=== PATIENT | female | born 1960 | race Caucasian/White ===

== ENCOUNTER 2024-11-22 09:21 | Inpatient (IN) | payer BC, MEDICARE ==
[2024-11-22 10:18] LABS: #Basophils 0.08 10x3/uL (0.0-0.2); #Eosinophils 0.86 10x3/uL (0.0-0.5); #Monocytes 0.84 10x3/uL (0.0-1.1); #Neutrophils 5.21 10x3/uL (1.5-8.4); %Basophils 0.8 % (0.0-2.0); %Eosinophils 9.1 % (0.0-6.0); %Lymphocytes 25.7 % (18.0-47.0); %Monocytes 8.9 % (0.0-10.0); %Neutrophils 55.2 % (40.0-75.0); Hematocrit 43.4 % (34.9-44.5); Hemoglobin 13.9 g/dL (12.0-15.5); Mean Corpuscular Volume 90.4 fL (81.6-98.3); Mean Platelet Volume 10.5 fL (7.4-10.4); Platelet Count 322 10x3/uL (150-450); White Blood Cell (WBC) Count 9.5 10x3/uL (3.5-10.5)
[2024-11-22 10:30] LABS: ALT (SGPT) 27 U/L (8-55); AST (SGOT) 23 U/L (5-34); Albumin 3.8 g/dL (3.4-4.8); Alkaline Phosphatase 117 U/L (40-110); Anion Gap 16 mmol/L (10-20); BUN (Urea Nitrogen) 15 mg/dL (9.8-20.1); Bilirubin, Total 0.5 mg/dL (0.2-1.2); Calc. Creatinine Clearance 0 mL/min (70-130); Calcium 9.7 mg/dL (7.8-10.44); Carbon Dioxide 23 mmol/L (23-31); Chloride 108 mmol/L (98-107); Estimated GFR 64; Globulin 3.5 g/dL (2.4-3.5); Glucose 94 mg/dL (80-115); Potassium 4.4 mmol/L (3.5-5.1); Protein, Total 7.3 g/dL (5.8-8.1); Sodium 143 mmol/L (136-145); Troponin I Less than 0.010 ng/mL (< 0.028)
[2024-11-22] MEDS ORDERED: methylPREDNISolone Sod Succ/PF 125 MG/2 ML VIAL ONE (10:30)
[2024-11-22] MEDS ORDERED: Ipratropium/Albuterol 3 ML NEB ONE (10:34)
[2024-11-22] MEDS ORDERED: Iopamidol 370 76% 100 ML VIAL ONE (10:37)
[2024-11-22] MEDS ORDERED: Azithromycin 500 MG VIAL ONE (13:18)
[2024-11-22] MEDS ORDERED: cefTRIAXone (ROCEPHIN) 2 GM VIAL ONE (13:18)
[2024-11-22] MEDS ORDERED: Magnesium 2 GM/50 ML BAG (IN WATER) ONE (13:19)
[2024-11-22] MEDS ORDERED: Ondansetron PF 4 MG/2 ML Vial IVP PRN (13:50)
[2024-11-22 16:00] VITALS: BMI 30.5
[2024-11-22] MEDS: Ipratropium/Albuterol 3 ML NEB NEB SCH (19:25)
[2024-11-22] MEDS: methylPREDNISolone Sod Succ 40 MG VIAL IVP SCH (21:57)
[2024-11-22] MEDS: hydrOXYzine 10 MG TAB PO SCH (21:58)
[2024-11-23] MEDS: traZODone HCl 50 MG TAB PO SCH (01:09)
[2024-11-23 04:08] LABS: #Basophils 0.01 10x3/uL (0.0-0.2); #Monocytes 0.12 10x3/uL (0.0-1.1); #Neutrophils 12.95 10x3/uL (1.5-8.4); %Basophils 0.1 % (0.0-2.0); %Lymphocytes 9.8 % (18.0-47.0); %Monocytes 0.8 % (0.0-10.0); %Neutrophils 88.6 % (40.0-75.0); Hematocrit 40.9 % (34.9-44.5); Hemoglobin 12.9 g/dL (12.0-15.5); Mean Corpuscular HGB CONC 31.5 g/dL (32.0-36.0); Mean Corpuscular Hemoglobin 28.4 pg (27.0-33.0); Mean Corpuscular Volume 89.9 fL (81.6-98.3); Mean Platelet Volume 10.3 fL (7.4-10.4); Platelet Count 312 10x3/uL (150-450); Red Blood Cell (RBC) Count 4.55 10x6/uL (3.90-5.03); White Blood Cell (WBC) Count 14.6 10x3/uL (3.5-10.5)
[2024-11-23 04:17] LABS: Anion Gap 16 mmol/L (10-20); BUN (Urea Nitrogen) 17 mg/dL (9.8-20.1); Calc. Creatinine Clearance 86 mL/min (70-130); Calcium 9.4 mg/dL (7.8-10.44); Carbon Dioxide 20 mmol/L (23-31); Chloride 107 mmol/L (98-107); Estimated GFR 78; Glucose 147 mg/dL (80-115); Potassium 4.3 mmol/L (3.5-5.1); Sodium 139 mmol/L (136-145)
[2024-11-23] MEDS: Enoxaparin 40 MG (0.4 mL) SYRINGE SC SCH (08:57)
[2024-11-23] MEDS: Pantoprazole 40 MG DR.TAB PO SCH (12:17)
[2024-11-23] MEDS: Benzonatate 100 MG CAP PO PRN (12:21)
[2024-11-23] MEDS: Acetaminophen 325 MG TAB PO PRN (12:21)
[2024-11-23] MEDS: Azithromycin 500 MG in Sodium Chloride 0.9% 250 ML 250 ML IVPB SCH (14:07)
[2024-11-23] MEDS: FLU (Fluad Triv) TS24-25 (65UP)/MF59C/PF 45 MCG/0.5 ML Syringe IM ONE (14:07)
[2024-11-23] MEDS: cefTRIAXone\\ROCEPHIN 1 GM in Sodium Chloride 0.9% 100 ML IVPB SCH (15:40)
[2024-11-23] MEDS: QUEtiapine 25 MG TAB PO SCH (20:58)
[2024-11-24] MEDS: Pantoprazole 40 MG DR.TAB PO SCH (09:09)
[2024-11-24] MEDS ORDERED: guaiFENesin/Codeine 200 mg/20 mg 10 ml Cup PO PRN (13:10)
[2024-11-24] MEDS: Benzonatate 100 MG CAP PO SCH (13:25)
[2024-11-24] MEDS: guaiFENesin ER 600 MG TAB PO SCH (20:15)
[2024-11-25 08:58] LABS: #Basophils 0.02 10x3/uL (0.0-0.2); #Monocytes 0.33 10x3/uL (0.0-1.1); #Neutrophils 14.12 10x3/uL (1.5-8.4); %Basophils 0.1 % (0.0-2.0); %Lymphocytes 8.3 % (18.0-47.0); %Monocytes 2.1 % (0.0-10.0); %Neutrophils 88.6 % (40.0-75.0); Hematocrit 41.7 % (34.9-44.5); Hemoglobin 13.1 g/dL (12.0-15.5); Mean Corpuscular HGB CONC 31.4 g/dL (32.0-36.0); Mean Corpuscular Hemoglobin 28.9 pg (27.0-33.0); Mean Corpuscular Volume 92.1 fL (81.6-98.3); Mean Platelet Volume 10.2 fL (7.4-10.4); Platelet Count 307 10x3/uL (150-450); RBC Distribution Width 14.3 % (11.5-14.5); Red Blood Cell (RBC) Count 4.53 10x6/uL (3.90-5.03); White Blood Cell (WBC) Count 15.9 10x3/uL (3.5-10.5)
[2024-11-25 09:14] LABS: Anion Gap 15 mmol/L (10-20); BUN (Urea Nitrogen) 20 mg/dL (9.8-20.1); Calc. Creatinine Clearance 86 mL/min (70-130); Calcium 9.1 mg/dL (7.8-10.44); Carbon Dioxide 22 mmol/L (23-31); Chloride 108 mmol/L (98-107); Estimated GFR 78; Glucose 156 mg/dL (80-115); Potassium 4.1 mmol/L (3.5-5.1); Sodium 141 mmol/L (136-145)
[2024-11-26 08:20] LABS: #Basophils 0.03 10x3/uL (0.0-0.2); #Eosinophils 0.16 10x3/uL (0.0-0.5); #Monocytes 1.02 10x3/uL (0.0-1.1); #Neutrophils 7.36 10x3/uL (1.5-8.4); %Basophils 0.2 % (0.0-2.0); %Eosinophils 1.3 % (0.0-6.0); %Lymphocytes 30.1 % (18.0-47.0); %Monocytes 8.2 % (0.0-10.0); %Neutrophils 59.2 % (40.0-75.0); Hematocrit 40.5 % (34.9-44.5); Hemoglobin 12.6 g/dL (12.0-15.5); Mean Corpuscular HGB CONC 31.1 g/dL (32.0-36.0); Mean Corpuscular Hemoglobin 28.4 pg (27.0-33.0); Mean Corpuscular Volume 91.4 fL (81.6-98.3); Platelet Count 276 10x3/uL (150-450); RBC Distribution Width 14.2 % (11.5-14.5); Red Blood Cell (RBC) Count 4.43 10x6/uL (3.90-5.03); White Blood Cell (WBC) Count 12.4 10x3/uL (3.5-10.5)
[2024-11-26 08:38] LABS: Anion Gap 14 mmol/L (10-20); BUN (Urea Nitrogen) 26 mg/dL (9.8-20.1); Calc. Creatinine Clearance 82 mL/min (70-130); Calcium 8.9 mg/dL (7.8-10.44); Carbon Dioxide 24 mmol/L (23-31); Chloride 107 mmol/L (98-107); Estimated GFR 74; Glucose 74 mg/dL (80-115); Potassium 4.5 mmol/L (3.5-5.1); Sodium 140 mmol/L (136-145)
[2024-11-26] MEDS: traMADol HCl 50 MG TAB PO PRN (09:05)
[2024-11-26] MEDS: predniSONE 20 MG TAB PO SCH (09:06)
[2024-11-26 12:18] VITALS: BP 136/67; TEMP 97.9
== END 2024-11-26 14:44 | disposition home or self-care (01) | DRG 196 ==
LOC: CSHERS 09:21 → CSHTELE 14:58
PROVIDERS: ADMIT Internal Medicine; ATTEND Internal Medicine
DX: J84.9 Interstitial pulmonary disease, unspecified (principal); J96.01 Acute respiratory failure with hypoxia; J44.1 Chronic obstructive pulmonary disease with (acute) exacerbation; J45.901 Unspecified asthma with (acute) exacerbation; K21.9 Gastro-esophageal reflux disease without esophagitis; Z79.899 Other long term (current) drug therapy; Z88.0 Allergy status to penicillin
CPT/HCPCS: 36415; 71046; 71275; 80048; 80053; 83880; 84484; 85025; 85379; 87428; 93005; 94640; 94660; 94760; 94762; 96365; 96367; 96368; 96375; J0456; J0696; J1650; J2919; J3475; J7050; J7512; J7620; Q9967